=== PATIENT | female | born 2000 | race American Indian/Alaskan Native ===

== ENCOUNTER 2019-04-11 10:46 | Emergency (ER) | payer SELFPAY ==
[2019-04-11 10:50] VITALS: BP 123/79
--- NOTE | 2019-04-11 11:11 | Emergency Department Report ---
ED Female HPI - General Chief complaint: Urogenital-Female Stated complaint: STD CHECK Time Seen by Provider: 04/11/19 11:11 Source: patient Mode of arrival: Ambulatory Limitations: No Limitations - Related Data Allergies Allergy/AdvReac Type Severity Reaction Status Date / Time No Known Allergies Allergy Unverified 04/11/19 10:47 ED Review of Systems ROS: Stated complaint: STD CHECK Other details as noted in HPI ED Past Medical Hx - Past Medical History Previous Medical History?: No - Surgical History Past Surgical History?: No - Social History Smoking Status: Never Smoker ED Physical Exam - General Limitations: No Limitations ED Course Vital Signs 04/11/19 10:49 Temperature 98 F Pulse Rate 87 Respiratory 18 Rate Blood Pressure 123/79 O2 Sat by Pulse 98 Oximetry Critical care attestation.: If time is entered above; I have spent that time in minutes in the direct care of this critically ill patient, excluding procedure time. ED Disposition Condition: Stable
--- NOTE | 2019-04-11 11:43 | Emergency Department Report ---
Chief Complaint: Urogenital-Female Stated Complaint: STD CHECK Time Seen by Provider: 04/11/19 11:11 - HPI History of Present Illness: 19-year-old -[place] female presents to the emergency room for 3 week history of vaginal bleeding. Patient reported that she recently had her Implanon in her arm replaced. 3 months ago. She's had the Implanon for the last 5 years and she just recently had it replaced. Patient also wants to be checked for STD but denies any vaginal discharge or unprotected intercourse. Patient pushes been taking Advil which he reports helped with her pelvic cramps. Last menstrual period was 03/08/2019. - ROS Review of Systems: Vaginal bleeding 3 weeks no vaginal discharge no dysuria pelvic cramps. - Exam Vital Signs: Vital Signs 04/11/19 10:49 Temperature 98 F Pulse Rate 87 Respiratory 18 Rate Blood Pressure 123/79 O2 Sat by Pulse 98 Oximetry Physical Exam: Alert and oriented 3. No acute distress. Nontoxic in appearance. MSE screening note: Focused history and physical exam performed. Due to findings the following was ordered: Discussed the patient that is normal for her to have abnormal menstrual bleeding with the replacement of Implanon control. I discussed the patient she will be evaluated by an GROUP COUNSELOR or primary care provider. I discussed the sharon muniz estimation below for her convenience. Patient discussed with doctor:: [facility] ED Disposition for MSE Clinical Impression: Dysfunctional uterine bleeding Disposition: DC-01 TO HOME OR SELFCARE Is pt being admited?: No Does the pt Need Aspirin: No Condition: Stable Additional Instructions: Follow-up at the community clinics or health department for STD evaluation. Referrals: [facility] [Outside] - 3-5 Days [facility] [Outside] - 3-5 Days [facility] [Outside] - 3-5 Days [facility] [Provider Group] - 3-5 Days
== END 2019-04-11 12:45 | disposition left against medical advice (07) ==
LOC: ED 10:46
DX: N93.8 Other specified abnormal uterine and vaginal bleeding (principal)
CPT/HCPCS: 99281